=== PATIENT | male | born 1970 | race Two or more races ===

== ENCOUNTER 2020-10-03 18:21 | Emergency (ER) | payer MEDICAID ==
[~2020-10-03] VITALS: Ht 162.6 cm; Wt 71.7 kg
--- NOTE | 2020-10-03 18:51 | NUR ---
PT IS IN ROOM #1B. DR GATES EVALUATED THE PT.
[2020-10-03] MEDS ORDERED: ALPR2TAB7 PO (18:59)
[2020-10-03] MEDS ORDERED: ALPRAZOLAM 0.25 MG TABLET PO ONE (19:00)
--- NOTE | 2020-10-03 19:13 | NUR ---
Recieved report from NIXON Acosta.
[2020-10-03] MEDS ORDERED: METF-440 PO (19:20)
[2020-10-03] MEDS ORDERED: ALPRAZOLAM 0.5 MG TABLET ONE (19:25)
[2020-10-03] MEDS ORDERED: METFORMIN HCL 500 MG TABLET ONE (19:28)
--- NOTE | 2020-10-03 19:43 | NUR ---
Patient discharged to home in stable condition. Written and verbal after care instructions given. Patient verbalizes understanding of instructions. Stressed follow up or return to ER for worsening s/s. Pt. denies abdominal pain, anxiety. Vss. Pt. will be picked up by a friend and understands instructions not to drive.
[2020-10-03] MEDS ORDERED: METFORMIN HCL 500 MG TABLET PO ONE (19:45)
[2020-10-03 19:46] VITALS: BP 112/65
== END 2020-10-03 19:41 | disposition home or self-care (01) ==
LOC: ER 18:21
DX: F13.239 Sedative, hypnotic or anxiolytic dependence with withdrawal, unspecified (principal); G47.00 Insomnia, unspecified; F41.9 Anxiety disorder, unspecified; E11.65 Type 2 diabetes mellitus with hyperglycemia; Z20.822 Contact with and (suspected) exposure to COVID-19
CPT/HCPCS: A4663